=== PATIENT | female | born 1985 | race Caucasian/White ===

== ENCOUNTER 2023-07-14 22:22 | Emergency (ER) | payer BC ==
--- NOTE | 2023-07-14 22:22 | ED Physician Documentation ---
History of Present Illness - Stated complaint Stated Complaint: ALLERGIC RXN - History obtained from History obtained from: Patient - Additonal information Additional information: BIBA. Patient was prescribed doxycycline and metronidazole today by her gate manager. She took the first dose of doxycycline tonight at approximately 8 PM and, within 30 minutes, she developed diffuse, intensely pruritic rash with sparing of head/neck. She denies dyspnea, swelling and/or constriction sensation of lips, tongue, posterior oropharynx, chest. Denies lightheadedness. Has not had allergic reactions before. She also experienced generalized HEDRICK, nausea and vomiting. She took 25mg benadryl PO. EMS arrived and administered 0.3 mg SQ epinephrine and 4mg IV zofran. Normal pulse ox and blood pressures in field/en route. She had significant improvement (near-resolution) of the rash and itching subsequent to the SQ epinephrine Review of Systems Respiratory: denies: Dyspnea, Cough, Wheezing GI: reports: Nausea, Vomiting. denies: Abdominal Pain Skin: reports: Rash PD PAST MEDICAL HISTORY - Present Medications Home Medications: Ambulatory Orders Medication Instructions Recorded Confirmed EPINEPHrine [Epinephrine] 0.3 mg IJ ONCE PRN #2 each 07/14/23 predniSONE [Deltasone] 40 mg PO DAILY 2 Days #4 tablet 07/15/23 - Allergies Allergies/Adverse Reactions: Allergies Allergy/AdvReac Type Severity Reaction Status Date / Time cefaclor [From Counts Include [facility]] Allergy Hives Verified 07/14/23 22:30 doxycycline Allergy Hives Verified 07/14/23 22:30 PD ED PE NORMAL - Vitals Vital signs reviewed: Yes - General General: Alert and oriented X 3, No acute distress, Well developed/nourished - Cardiac Cardiac: RRR, No murmur - Respiratory Respiratory: No respiratory distress, Clear bilaterally - Abdomen Abdomen: Soft, Non tender - Derm Derm: Normal color, Warm and dry, No rash Results - Vitals Vitals: Oxygen O2 Source Room air PD Medical Decision Making - ED course Complexity details: re-evaluated patient, considered differential, d/w patient ED course: Presents due to allergic reaction after taking first dose of doxycycline tonight. Symptoms have essentially resolved by the time of ED presentation after benadryl at home followed by SQ epinephrine given by EMS. After over 90 minutes of ED observation, patient did not have recurrence of rash, itching, n/v. Vital signs remain stable and she is in NAD and asymptomatic. D/W Dr. Huddleston (on-call gate manager) regarding antibiotics (whether to switch patient to another abx); her recommendation is no antibiotics going forward until vaginal/cervical culture results (swab taken earlier today in outpatient setting), at which time indication for abx can be determined and choice of abx can be based on sensitivities. I relayed this information to patient. Return precautions reviewed. E-prescribed epi-pens and short course of QD prednisone. She was given 40mg PO prednisone in ED. Departure - Departure Disposition: Home, Self Care Clinical Impression: Allergic reaction caused by a drug Qualifiers: Encounter type: initial encounter Qualified Code(s): T78.40XA - Allergy, unspecified, initial encounter Condition: Good Instructions: ED Drug React Allergic Follow-Up: Bridget Huddleston MD [Primary Care Provider] - Prescriptions: predniSONE [Deltasone] 40 mg PO DAILY 2 Days #4 tablet EPINEPHrine [Epinephrine] 0.3 mg IJ ONCE PRN #2 each PRN Reason: Anaphylaxis Comments: Do not take either the antibiotics that were prescribed earlier today; obviously, he should never take doxycycline again due to the allergic reaction you had tonight. As for the metronidazole (the other antibiotic that had been prescribed earlier today), per my discussion with Dr. Huddleston, her recommendation is to hold off on any antibiotics for now; an antibiotic can be reconsidered if the culture of the swab taken earlier today by Dr. Huddleston is positive for any concerning/abnormal bacteria. I have electronically submitted prescriptions for epi-pen as well as prednisone to the [facility] in [place]. The prednisone is a steroid, the first dose of which was given in the emergency department tonight. I have prescribed two more days of the steroid. Forms: PCP List Discharge Date/Time: 07/15/23 00:15
[2023-07-14 22:43] VITALS: BP 113/81; O2SAT 100
[2023-07-15] MEDS: predniSONE 20 MG TABLET PO STA (00:14)
== END 2023-07-15 00:15 | disposition home or self-care (01) ==
LOC: EDUNIT# → ED 22:22
DX: T36.4X5A Adverse effect of tetracyclines, initial encounter (principal)
CPT/HCPCS: 99283; 99284; J7512

== ENCOUNTER 2023-10-02 16:57 | Outpatient (CLI) | payer BC ==
--- NOTE | 2023-10-04 13:12 | Ultrasound Report ---
PROCEDURE: Pelvic Complete INDICATIONS: SPONTANEOUS TECHNIQUE: Real-time transabdominal scanning was performed of the pelvic organs, with image documentation. Trans vaginal exam was not performed. The technologist spoke with the provider who is looking to evaluate f or number of follicles and fibroids. Provider does not want transvaginal views if not needed. COMPARISON: None FINDINGS: Uterus: Uterus is anteverted and normal in size at 6.9 x 2.5 x 3.9 cm. The myometrium is heterogene ous. The endometrium measures 6.1 mm in combined thickness. Cervix and vagina are within normal patrick its. No sonographic evidence of uterine fibroids. Ovaries: The right ovary measures 2.1 x 2 x 2.1 cm, with a calculated ovarian volume of 4.7 cc. The left ovary measures 2.3 x 1.5 x 2.3 cm, with a calculated ovarian volume of 4 cc. The bilateral dom inant follicles with thick wall measuring 1.3 x 1.1 x 1.4 cm on the right and 1.9 x 1.2 x 1.1 cm on t he left. Less than 12 follicles can be seen in each ovary. No adnexal masses are seen. No cystic le sions measuring greater than 3 cm. Other: No free pelvic fluid. IMPRESSION: Exam is limited due to transabdominal view only. 1.Within these limitations, normal sonographic appearance of the uterus. No sonographic evidence of u terine fibroids. 2.Bilateral ovaries demonstrate less than 12 follicles with dominant follicles on each side, as descr ibed above. Reviewed by: Aspen Noble MD on 10/04/2023 1:11 PM PDT Approved by: Aspen Noble MD on 10/04/2023 1:11 PM PDT Station ID: [id number]
== END 2023-10-02 16:58 | disposition home or self-care (01) ==
LOC: DI 16:57
PROVIDERS: ATTEND Nurse Practitioner
DX: O03.9 Complete or unspecified spontaneous abortion without complication (principal)

== ENCOUNTER 2023-12-31 12:20 | Emergency (ER) | payer BC ==
--- NOTE | 2023-12-31 12:43 | ED Physician Documentation ---
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 Her mom has had a DVT. Since yesterday she has had calf pain. There was no trauma. No chest pain or trouble breathing. She is 6 weeks . PD PAST MEDICAL HISTORY - Present Medications Home Medications: Ambulatory Orders Medication Instructions Recorded Confirmed EPINEPHrine [Epinephrine] 0.3 mg IJ ONCE PRN #2 each 07/14/23 12/31/23 - Allergies Allergies/Adverse Reactions: Allergies Allergy/AdvReac Type Severity Reaction Status Date / Time cefaclor [From Ceclor] Allergy Hives Verified 12/31/23 12:36 doxycycline Allergy Hives Verified 12/31/23 12:36 - Social History Does the pt smoke?: No Smoking Status: Never smoker Does the pt drink ETOH?: No Does the pt have substance abuse?: No - Immunizations Immunizations are current?: Yes - POLST Patient has POLST: No PD ED PE NORMAL - Vitals Vital signs reviewed: Yes - General General: Alert and oriented X 3, No acute distress - Extremities Extremities: Other (Left calf is nontender and visibly normal. No obvious asymmetry when compared to the right.) - Neuro Neuro: Alert and oriented X 3 Results - Vitals Vitals: Vital Signs - 24 hr 12/31/23 12:30 Temperature 36.2 C L Heart Rate 56 L Respiratory 15 Rate Blood Pressure 129/85 H O2 Saturation 100 Oxygen O2 Source Room air - Rads (name of study) Negative DVT ultrasound per RDMS Relevant Findings:: Prelim report reviewed PD Medical Decision Making - ED course ED course: She presented with left calf pain, could be muscular versus thrombotic disease. Relevant ultrasonography negative. Normal exam without signs of edema or compartment syndrome or shingles. Departure - Departure Disposition: 01 Home, Self Care Clinical Impression: Pain of lower extremity Qualifiers: Laterality: left Qualified Code(s): M79.605 - Pain in left leg Condition: Good Record reviewed to determine appropriate education?: Yes Instructions: ED Muscle Pain Leg Cramps Comments: No blood clot on ultrasound. Follow-up with your doctor in a week if not better. Return for new or worsening symptoms. Forms: PCP List Discharge Date/Time: 12/31/23 13:38
[2023-12-31 12:44] VITALS: BP 129/85; O2SAT 100
--- NOTE | 2023-12-31 13:38 | Ultrasound Report ---
PROCEDURE: Duplex Ext Veins Left INDICATIONS: lle pain TECHNIQUE: Real-time imaging, as well as color and pulse Doppler interrogation, were performed of the lower extr emity deep veins from the inguinal ligament to the popliteal fossa. Attempted visualization of the ca lf veins was performed. COMPARISON: None. FINDINGS: The deep veins are normally compressible, and free of intraluminal thrombus. Color and pu lse Doppler demonstrate normal phasic intraluminal flow. There is normal augmentation response to di stal compression maneuver. IMPRESSION: No deep venous thrombosis of the visualized lower extremity. Reviewed by: Kevin Thompson MD on 12/31/2023 1:36 PM PDT Approved by: Kevin Thmopson MD on 12/31/2023 1:36 PM PDT Station ID: [id number]
== END 2023-12-31 13:38 | disposition home or self-care (01) ==
LOC: ED 12:20
DX: M79.662 Pain in left lower leg (principal)
CPT/HCPCS: 99283; 99284

== ENCOUNTER 2024-01-12 08:00 | Outpatient (CLI) | payer BC ==
[2024-01-12 16:56] LABS: BILIRUBIN,URINE NEGATIVE (NEGATIVE); GLUCOSE, URINE (UA) NEGATIVE (NEGATIVE); KETONES,URINE (UA) NEGATIVE (NEGATIVE); LEUKOCYTE ESTERASE, URINE NEGATIVE (NEGATIVE); NITRITE,URINE NEGATIVE (NEGATIVE); OCCULT BLOOD,URINE NEGATIVE (NEGATIVE); PROTEIN,URINE NEGATIVE (NEGATIVE); UROBILINOGEN,URINE 0.2 (NORMAL) E.U./dL (NORMAL)
[2024-01-12 17:00] LABS: CLARITY,URINE CLEAR (CLEAR)
[2024-01-12 17:12] LABS: BACTERIA,URINE Rare /HPF (None Seen); RBC,URINE 0-5 /HPF (0-5); SQUAMOUS EPITHELIAL CELL,UR NONE SEEN (<= Few); WBC,URINE 0-3 /HPF (0-5)
[2024-01-12 17:26] LABS: CREATININE,URINE 63.7 mg/dL; PROTEIN/CREATININE RATIO,URINE 0.1 (<=0.2)
== END 2024-01-12 23:59 | disposition home or self-care (01) ==
LOC: LAB.WC 08:00
PROVIDERS: ATTEND Obstetrics & Gynecology
DX: Z34.90 Encounter for supervision of normal pregnancy, unspecified, unspecified trimester (principal)
CPT/HCPCS: 81001; 82570; 84156; 87086

== ENCOUNTER 2024-01-21 15:50 | Outpatient (CLI) | payer BC ==
--- NOTE | 2024-01-21 17:18 | Ultrasound Report ---
PROCEDURE: OB 1st Trimester w/TV INDICATIONS: POSITIVE TEST OUTSIDE/PRIOR DATING DATA: Last menstrual period (LMP): 11/23/2023. LMP-based estimated date of delivery (TOY): 08/29/2024. TECHNIQUE: Real-time scanning was performed of the fetus and maternal pelvic organs, with image documentation. Endovaginal scanning was also performed to better visualize the fetus and maternal ovaries. COMPARISON: None. FINDINGS: There is an intrauterine gestational sac with a pole and a yolk sac. Immediately adj acent to this gestational sac and by thin membrane is a second fluid collection which also shows a decidual reaction. The second fluid collection demonstrates some minimal intraluminal echogen ic foci but no identifiable yolk sac or pole. Embryo: [place]-rump length is 0.47 cm correlating with 6 weeks 1 day gestational age. Heart rate: No cardiac activity is identified. Other: There is a subchorionic hemorrhage encompassing less than 25% of the gestational sac perimeter at the margin of the gestational sac closest to the cervix. Measurement variability in dating: +/- 4 weeks by LMP, +/- 7 days by mean sac diameter (use before 6 weeks gestation if crown-rump length not able to be measured), +/- 5 days by crown-rump length (6-12 weeks gestation). Maternal organs: Ovaries appear within normal limits. IMPRESSION: Findings suspicious for but not diagnostic of failed . Close clinical and laboratory follow- up is recommended with follow-up sonography in 7-14 days. Fluid collection adjacent to the gestational sac which may represent a second subchorionic hemorrhage versus a failed diamniotic twin . Reviewed by: Stephanie Carr MD on 01/21/2024 4:17 PM PAUL Approved by: Stephanie Carr MD on 01/21/2024 4:17 PM PAUL Station ID: [id number]
== END 2024-01-21 15:51 | disposition home or self-care (01) ==
LOC: DI 15:50
PROVIDERS: ATTEND Obstetrics & Gynecology
DX: O36.80X0 Pregnancy with inconclusive fetal viability, not applicable or unspecified (principal); O99.280 Endocrine, nutritional and metabolic diseases complicating pregnancy, unspecified trimester; E03.9 Hypothyroidism, unspecified
CPT/HCPCS: 36415; 80053; 81001; 81599; 82570; 83036; 84156; 84439; 84443; 84481; 85025; 86592; 86762; 86787; 86803; 86850; 86900; 86901; 87086; 87340; 87389

== ENCOUNTER 2024-01-21 16:17 | Outpatient (CLI) | payer BC ==
[2024-01-21 17:28] LABS: BASOPHILS # (AUTO) 0.1 10^3/uL (0.0-0.1); BASOPHILS % (AUTO) 0.8 %; EOSINOPHILS # (AUTO) 0.1 10^3/uL (0.0-0.7); EOSINOPHILS % (AUTO) 1.3 %; HCT - HEMATOCRIT 38.3 % (37.0-47.0); HGB - HEMOGLOBIN 13.2 g/dL (12.0-16.0); LYMPHOCYTES # (AUTO) 2.7 10^3/uL (1.5-3.5); LYMPHOCYTES % (AUTO) 35.4 %; MEAN CORPUSCULAR HEMOGLOBIN 32.4 pg (27.0-31.0); MEAN CORPUSCULAR HGB CONC 34.5 g/dL (32.0-36.0); MEAN CORPUSCULAR VOLUME 93.9 fL (81.0-99.0); MEAN PLATELET VOLUME 10.5 fL (7.9-10.8); MONOCYTES # (AUTO) 0.5 10^3/uL (0.0-1.0); NEUTROPHILS # (AUTO) 4.2 10^3/uL (1.5-6.6); NEUTROPHILS % (AUTO) 56.4 %; PLT - PLATELET COUNT 230 10^3/uL (130-450); RED BLOOD COUNT 4.08 10^6/uL (4.20-5.40); RED CELL DISTRIBUTION WIDTH 11.7 % (12.0-15.0); WHITE BLOOD COUNT 7.5 x10^3/uL (4.8-10.8)
[2024-01-21 17:29] LABS: BILIRUBIN,URINE NEGATIVE (NEGATIVE); GLUCOSE, URINE (UA) NEGATIVE (NEGATIVE); KETONES,URINE (UA) NEGATIVE (NEGATIVE); LEUKOCYTE ESTERASE, URINE NEGATIVE (NEGATIVE); NITRITE,URINE NEGATIVE (NEGATIVE); OCCULT BLOOD,URINE NEGATIVE (NEGATIVE); PROTEIN,URINE NEGATIVE (NEGATIVE); UROBILINOGEN,URINE 0.2 (NORMAL) E.U./dL (NORMAL)
[2024-01-21 17:41] LABS: CREATININE,URINE 20.1 mg/dL; TOTAL PROTEIN,URINE TIMED < 4 mg/dL
[2024-01-21 17:42] LABS: ALBUMIN 4.1 g/dL (3.2-5.5); ALBUMIN/GLOBULIN RATIO 1.5 (1.0-2.2); BILIRUBIN,TOTAL 0.5 mg/dL (0.2-1.0); CALCIUM 9.7 mg/dL (8.5-10.3); CREATININE 0.6 mg/dL (0.6-1.3); POTASSIUM 3.7 mmol/L (3.5-4.5); TOTAL PROTEIN 6.8 g/dL (6.4-8.9)
[2024-01-21 17:45] LABS: CLARITY,URINE CLEAR (CLEAR)
[2024-01-21 17:46] LABS: BACTERIA,URINE None Seen /HPF (None Seen); RBC,URINE None Seen /HPF (0-5); SQUAMOUS EPITHELIAL CELL,UR RARE Squamous (<= Few); WBC,URINE 0-3 /HPF (0-5)
[2024-01-21 17:57] LABS: THYROID STIMULATING HORMONE 1.76 uIU/mL (0.34-5.60)
[2024-01-21 21:11] LABS: ESTIMATED AVERAGE GLUCOSE 91 mg/dL (70-100); HEMOGLOBIN A1c% 4.8 % (4.27-6.07)
[2024-01-23 03:10] LABS: HIV SCREEN 4TH GENERATION Non Reactive (Non Reactive)
[2024-01-23 05:13] LABS: HBsAG SCREEN Negative (Negative); HCV AB Non Reactive (Non Reactive)
[2024-01-23 06:10] LABS: RPR Non Reactive (Non Reactive)
[2024-01-23 09:10] LABS: VARICELLA-ZOSTER AB IGG 1028 index (Immune >165)
== END 2024-01-21 16:18 | disposition home or self-care (01) ==
LOC: LAB 16:17
PROVIDERS: ATTEND Obstetrics & Gynecology
DX: O99.280 Endocrine, nutritional and metabolic diseases complicating pregnancy, unspecified trimester (principal); E03.9 Hypothyroidism, unspecified
CPT/HCPCS: 36415; 80053; 81001; 81599; 82570; 83036; 84156; 84439; 84443; 84481; 85025; 86592; 86762; 86787; 86803; 86850; 86900; 86901; 87086; 87340; 87389

== ENCOUNTER 2024-01-24 21:01 | Outpatient (CLI) | payer BC ==
--- NOTE | 2024-01-24 22:15 | Ultrasound Report ---
PROCEDURE: OB Transvaginal INDICATIONS: RECURRENT MISCARRIEGE OUTSIDE/PRIOR DATING DATA: Last menstrual period (LMP): 11/23/2023. LMP-based estimated date of delivery (TOY): 08/29/2024. First dating scan (date and location): Today's exam. TECHNIQUE: Real-time scanning was performed of the fetus, with image documentation. Endovaginal scanning: Performed COMPARISON: 01/21/2024 FINDINGS: Intrauterine gestational sac with pole and yolk sac. pole measures 0.4 cm, corresponding to 6 weeks 1 day. No activity identified. Adjacent to the gestational sac and by a thin membrane is a second fluid collection which a lso shows a decidual reaction. No pole or yolk sac identified within this region. Small subchorionic hemorrhage measuring 1.2 x 0.8 x 1.4 cm. IMPRESSION: Findings suspicious for, but not diagnostic of, failure, with similar findings compared wit h 01/21/2024. 11 day sonographic follow-up is recommended. Reviewed by: Shoaib Butt MD on 01/24/2024 10:14 PM PDT Approved by: Shoaib Butt MD on 01/24/2024 10:14 PM PDT Station ID: [id number]
== END 2024-01-24 21:02 | disposition home or self-care (01) ==
LOC: DI 21:01
PROVIDERS: ATTEND Obstetrics & Gynecology
DX: O36.80X0 Pregnancy with inconclusive fetal viability, not applicable or unspecified (principal); N96 Recurrent pregnancy loss

== ENCOUNTER 2024-01-30 08:46 | Day surgery (SDC) | payer BC ==
[~2024-01-30 08:46] MED LIST: metroNIDAZOLE 500 MG/100 ML 500 MG/100 ML BAG ONE
[2024-01-30] MEDS: LACTATED RINGERS 1,000 ML IV ONE ×2 (08:48→10:55)
[2024-01-30] MEDS: ACETAMINOPHEN 325 MG TABLET PO ONE (09:00)
--- NOTE | 2024-01-30 09:38 | ANESTHESIA ---
Pre-Anesthesia VS, & Labs - Diagnosis Missed AB - Procedure Suction D&C Height: 5 ft 5.5 in Weight (kg): 86 kg Body Mass Index: 31.0 BMI Classification: Obese - NPO >8 hours - Is Patient ?: Yes Home Medications and Allergies Home Medications: Ambulatory Orders ALPRAZolam [Alprazolam] 0.5 mg PO DAILY 01/29/24 [employer] Thyroid 30 mg PO BID 01/29/24 ALPRAZolam [Alprazolam] 0.5 mg PO DAILY 01/29/24 [employer] Thyroid 30 mg PO BID 01/29/24 Allergies/Adverse Reactions: Allergies Allergy/AdvReac Type Severity Reaction Status Date / Time cefaclor [From Ceclor] Allergy Hives Verified 01/30/24 06:19 doxycycline Allergy Hives Verified 01/30/24 06:19 lactose AdvReac Unknown Verified 01/30/24 06:19 Anes History & Medical History - Anesthetic History Anesthesia Complications: reports: No previous complications - Medical History Cardiovascular: reports: None Pulmonary: reports: None Gastrointestinal: reports: Other (IBS) Urinary: reports: None Neuro: reports: None Musculoskeletal: reports: None Endocrine/Autoimmune: reports: HyPOthyroidism Skin: reports: None Smoking Status: Never smoker Psychosocial: reports: Anxiety, Alcohol (2x per week) History of Cancer?: No Other Past Medical History: Long covid - Surgical History Gynecologic: reports: Other Orthopedic: reports: Spine surgery Exam General: Alert, Oriented x3, Cooperative, No acute distress Dental: WNL Mouth Openin Fingerbreadth Neck Mobility: Normal Mallampati classification: I Thyromental Distance: 4-6 cm Mental/Cognitive Status: Alert/Oriented X3, Normal for patient Plan Anesthesia Type: General Consent for Procedure(s) Verified and Reviewed: Yes Code Status: Attempt Resuscitation ASA classification: 2-Mild systemic disease Is this case an emergency?: No
[2024-01-30] MEDS ORDERED: LIDOCAINE 1%-EPI 1:100000 20 ML MDV ONE (09:40)
[2024-01-30] MEDS ORDERED: NALOXONE 0.4 MG/ML VIAL IVP PRN (09:42)
[2024-01-30] MEDS ORDERED: ONDANSETRON 4 MG/2 ML VIAL IVP PRN (09:42)
[2024-01-30] MEDS ORDERED: HYDROmorphone 0.5 MG/0.5 ML SYRINGE IVP PRN (09:42)
[2024-01-30] MEDS ORDERED: ATROPINE ABBOJECT 1 MG/10 ML SYRINGE IVP PRN (09:42)
[2024-01-30] MEDS ORDERED: MORPHINE 2 MG/ML CARPUJECT IVP PRN (09:42)
[2024-01-30] MEDS ORDERED: fentaNYL 100 MCG/2 ML VIAL IVP PRN (09:42)
[2024-01-30] MEDS ORDERED: fentaNYL 100 MCG/2 ML VIAL ONE (09:48)
[2024-01-30] MEDS ORDERED: MIDAZOLAM 2 MG/2 ML VIAL ONE (09:48)
[2024-01-30] MEDS ORDERED: LIDOCAINE-MPF 2% 5 ML VIAL ONE (09:48)
[2024-01-30] MEDS ORDERED: PROPOFOL 200 MG/20 ML VIAL IVP ONE (09:48)
[2024-01-30] MEDS ORDERED: LACTATED RINGERS 1,000 ML IV SCH (10:00)
[2024-01-30] MEDS ORDERED: SCOPOLAMINE PATCH TOP SCH (10:00)
[2024-01-30] MEDS ORDERED: ONDANSETRON 4 MG/2 ML VIAL ONE (10:32)
[2024-01-30] MEDS ORDERED: DEXAMETHASONE 4 MG/ML VIAL ONE (10:32)
[2024-01-30] MEDS ORDERED: METHYLERGONOVINE 0.2 MG/ML VIAL ONE (10:38)
[2024-01-30] MEDS ORDERED: HYDROmorphone 1 MG/ML CARPUJECT ONE (10:41)
[2024-01-30] MEDS ORDERED: KETOROLAC 30 MG/ML VIAL ONE (10:41)
[2024-01-30] MEDS ORDERED: oxyCODONE 5 MG TABLET PO PRN (11:04)
--- NOTE | 2024-01-30 11:25 | OPERATIVE REPORT ---
Operative Report - General Planned Procedure: suction D&C of uterus Pre-Op Diagnosis: missed Procedure Performed: suction D&C of uterus Post Op Diagnosis: same - Procedure Note Primary Surgeon: Bridget Huddleston MD Anesthesia Provider: Óscar Houston CRNA Anesthesia Technique: General LMA Pathology: products of conception IV Fluids (mL): 700 Estimated Blood Loss (mL): 250 Urine Output (mL): 0 Indications: missed at 6 weeks size. Findings: uterus sounds to 10 cm. some products of conception seen in canister. Complications: none - Other Other Information/Narrative: Patient with a very wanted . Found to be not viable when she was about 8 weeks along but gestational sac and pole were about 6 weeks size. She is here today for D&C to end this nonviable . Alternate options were discussed. Consent form was signed. Patient was brought to the operating room and general LMA was given. She was prepped and draped with legs in Dillon stirrups. time out was done. exam under anesthesia done. uterus about 8 cm. anteverted. grasped with tenaculum. cervix dilated to allow passage of 7 mm suction curette. suction to green. uterus emptied some but I was not able get the fundal area clear. Sharp curettage done. minimal tissue. tried to use and 9 mm curette to empty better. dilated to allow this to pass. and minimal more tissue. She was passing moderate blood. methergine 0.2 mg im given. Uterine massage done. one more pass with sharp curette and with 7mm curette. After this uterus contracted better and bleeding was minimal. Instruments were removed. Patient was awakened and brought to the recovery in stable condition.
[2024-01-30 12:23] VITALS: BP 100/58; O2SAT 94
--- NOTE | 2024-01-30 15:22 | ANESTHESIA POST OP EVALUATION ---
Anesthesia Post Eval - Post Anesthesia Eval Vitals: Last Vital Signs Temp 36.2 C L 01/30/24 11:50 Pulse 52 L 01/30/24 11:50 Resp 16 01/30/24 11:50 BP 100/58 L 01/30/24 11:50 Pulse Ox 94 01/30/24 11:50 O2 Flow Rate CV Function Including HR & BP: Stable Pain Control: Satisfactory Nausea & Vomiting: Negative Mental Status: Baseline Respiratory Status: Airway Patent Hydration Status: Satisfactory Anesthesia Complications: None
== END 2024-01-30 08:47 | disposition home or self-care (01) ==
LOC: SDS 08:46
PROVIDERS: ATTEND Obstetrics & Gynecology
PROC: 10D07Z6 Extraction of Products of Conception, Vacuum, Via Natural or Artificial Opening (ICD-10-PCS; principal; 2024-01-30 09:45)
DX: O02.1 Missed abortion (principal); E66.9 Obesity, unspecified
CPT/HCPCS: 59820; A9270; J1170; J2210; J3490; J7120